=== PATIENT | male | born 2005 | race Hispanic/Latino ===

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

== ENCOUNTER 2024-06-24 12:02 | Emergency (ER) | payer OTHER | END 2024-06-24 13:00 | disposition home or self-care (01) | LOC: ERS 12:02 | DX: B34.9 Viral infection, unspecified (principal) | CPT/HCPCS: 87428; 99283 ==